=== PATIENT | female | born 1980 | race Caucasian/White ===

== ENCOUNTER → 2016-08-10 | Outpatient (CLI) | payer OTHER | LOC: FIMAGING 09:43 | PROVIDERS: ATTEND Obstetrics & Gynecology | DX: O34.29 Maternal care due to uterine scar from other previous surgery (principal); O09.522 Supervision of elderly multigravida, second trimester; Z3A.19 19 weeks gestation of pregnancy ==

== ENCOUNTER 2016-10-21 12:23 | Observation (INO) | payer OTHER | END 2016-10-21 15:32 | disposition home or self-care (01) | LOC: FLD 12:23 | PROVIDERS: ADMIT Obstetrics & Gynecology; ATTEND Obstetrics & Gynecology | DX: O09.523 Supervision of elderly multigravida, third trimester (principal); Z3A.29 29 weeks gestation of pregnancy | CPT/HCPCS: 59025; G0378 ==

== ENCOUNTER 2016-12-24 04:28 | Inpatient (IN) | payer OTHER ==
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
[2016-12-24] MEDS ORDERED: OLIVE OIL 118 ML BTL MISC PRN (05:07)
[2016-12-24] MEDS ORDERED: EPSOM SALT 454 GM TP PRN (05:07)
[2016-12-24] MEDS ORDERED: TERBUTALINE SULFATE 1 MG/ML VIAL IV PRN (05:07)
[2016-12-24] MEDS ORDERED: LR 1,000 ML IV PRN (05:07)
[2016-12-24] MEDS ORDERED: OXYTOCIN/RINGERS LACTATE 1,000 ML IV PRN (05:07)
[2016-12-24] MEDS ORDERED: VANCOMYCIN HCL/NORMAL SALINE 250 ML IV SCH (05:30)
[2016-12-24 05:35] LABS: % IMMATURE GRANULYOCYTES 1.5 % (0.0-1.1); ABSOLUTE IMMATURE GRANULOCYTES 0.14 10^3/uL (0.00-0.10); ADD DIFF? NO; ADD MORPH? NO; ADD SCAN? NO; ATYPICAL LYMPHOCYTE FLAG 10 (0-99); FRAGMENT RBC FLAG 0 (0-99); HEMATOCRIT 33.6 % (38.0-47.0); HEMOGLOBIN 11.3 g/dL (12.6-16.3); LEFT SHIFT FLG 10 (0-99); LIPEMIA HEMOLYSIS FLAG 80 (0-99); MEAN CELL HEMOGLOBIN CONCENTR. 33.6 g/dL (32.4-36.7); MEAN CELL VOLUME 92.1 fL (81.5-99.8); MEAN PLATELET VOLUME 12.5 fL (8.7-11.7); PLATELET CLUMPS FLAG 0 (0-99); PLATELET COUNT 195 10^3/uL (150-400); RED BLOOD CELL COUNT 3.65 10^6/uL (4.18-5.33); RED CELL DISTRIBUTION WIDTH 13.2 % (11.5-15.2)
[2016-12-24] MEDS ORDERED: MISOPROSTOL 200 MCG TAB ONE (06:30)
[2016-12-24] MEDS ORDERED: AMMONIA AROMATIC 1 EACH AMP IH ONE (06:30)
[2016-12-24] MEDS ORDERED: TERBUTALINE SULFATE 1 MG/ML VIAL ONE (06:30)
[2016-12-24] MEDS ORDERED: OLIVE OIL 118 ML BTL ONE (06:30)
[2016-12-24] MEDS ORDERED: OXYTOCIN 10 UNIT/ML VIAL ONE (06:30)
[2016-12-24] MEDS ORDERED: LIDOCAINE 1% 300 MG/30 ML SDV ONE (06:30)
[2016-12-24] MEDS ORDERED: ceFAZolin 2 GM/DEXTROSE 100 ML IV ONE (10:24)
--- NOTE | 2016-12-24 10:37 | PDHPUP ---
History & Physical Update H&P update statement: This history and physical update is based on an assessment of the patient which was completed after admission or registration (within 24 hours), but prior to the surgery/procedure. H&P update: H&P reviewed & patient examined H&P changes: patient has a history of prior . SROM overnight. no labor after several hours. US done to confirm vertex because no obvious presenting part in the pelvis. head so high I was barely able to reach tip of cervix. discussion about options of attemping vs proceeding with repeat c section. patient would like repeat c section. family status complete but plans to have vasectomy. consent obtained. anesthesia notified.
--- NOTE | 2016-12-24 10:40 | OBPROG ---
Labor Progress Note Assessment/Plan: Assessment: at 38 6/7 weeks history prior c section srom declines trial of labor family status complete Plan: repeat c section plans vasectomy 12/24/16 10:37 Objective: 12/24/16 05:20 Patient ABO/Rh O POSITIVE 12/24/16 05:20 - SVE Station: -3 Membranes: SROM Amniotic Fluid Color: Clear - FHR Assessment Oates FHR (bpm): 120 FHR Pattern Variability: Moderate FHR Category: 1 - AP Antepartum Course: 12/24/16 10:40 had G1 with [facility]. PLTCS for distress. baby was OP. no dilation past 4 cm. Initiated care with [facility] with this . transferred to [facility] at 28 weeks. was considering . negative verify. uncomplicated . hx previous hip surgeries and repair of multiple AVMs in her legs. - Physical Exam General Appearance: WD/WN, alert, no apparent distress Neck: non-tender, full range of motion, supple Respiratory: chest non-tender, lungs clear, normal breath sounds Cardiac/Chest: normal peripheral pulses, regular rate, rhythm Abdomen: normal bowel sounds, non-tender, other (gravid) Extremities: normal range of motion, non-tender, normal inspection, normal capillary refill Skin: normal color, warm/dry Neuro/Psych: no motor/sensory deficits, alert, normal mood/affect, oriented x 3 Oxytocin Orders Assessment - Pre-Induction/Augmentation Assessment Gestational Age: 38 week(s) and 6 day(s) ICD10 Worksheet Patient Problems: Problems Problem Status Onset BV (bacterial vaginosis) Acute
[2016-12-24] MEDS ORDERED: BUPIVACAINE/DEXTROSE 7.5MG/ML 2 ML SPINAL AMP SP ONE (10:54)
--- NOTE | 2016-12-24 11:13 | PREANESOB ---
Obstetric Pre-Anesthesia Info - General Info Proposed Procedure: : 2 Para: 1 - Info Status: Full Term (Prior section with ruptured membranes) - Labor Status Station per last OB SVE: -3 Section History: Repeat Labor Epidural: No Anesthesia Allergies/Adverse Reactions: Allergy/AdvReac Type Severity Reaction Status Date / Time Penicillins Allergy Verified 08/26/10 19:55 Home Medications: Medication Instructions Recorded Docusate Sodium [Colace 100 MG (*)] 100 mg PO BID PRN #60 cap 04/26/14 Visit Medications: Generic Name Dose Route Start Last Admin Trade Name Freq PRN Reason Stop Dose Admin Lactated Ringer's 1,000 mls @ 0 mls/hr 12/24/16 05:07 Lr IV 06/22/17 05:06 PRN PRN SEE PROTOCOL CONDITIONS Protocol Per Protocol Oxytocin/Lactated Ringer's 1,000 mls @ 150 mls/hr 12/24/16 05:07 Pitocin 20 Units/Lr (Premix) IV PRN PRN Post- bleeding Vancomycin/Sodium Chloride 250 mls @ 250 mls/hr 12/24/16 05:30 12/24/16 05:29 Vancomycin 1 Gm (Premix) IV 01/23/17 05:29 250 mls Q12H TRACI Administration Protocol Ibuprofen 600 mg 12/24/16 05:07 Motrin PO 06/22/17 05:06 Q6HRS PRN post , inflammation Magnesium Sulfate 454 gm 12/24/16 05:07 Epsom Salt TP 06/22/17 05:06 Q1H PRN perineal discomfort [place] Oil 118 ml 12/24/16 05:07 Sweet Oil MISC 06/22/17 05:06 ONCE PRN perineal massage Terbutaline Sulfate 0.25 mg 12/24/16 05:07 Brethine IV 06/22/17 05:06 ONCE PRN Tachysystole Discontinued Medications Generic Name Dose Route Start Last Admin Trade Name Freq PRN Reason Stop Dose Admin Ammonia (Aromatic Spirit) Confirm 12/24/16 06:30 Ammonia Aromatic Administered 12/24/16 06:31 Dose 1 each IH .STK-MED ONE Bupivacaine HCl/Dextrose Confirm 12/24/16 10:54 Marcaine Spinal Administered 12/24/16 10:55 Dose 2 ml SP .STK-MED ONE Ephedrine Sulfate Confirm 12/24/16 06:30 Ephedrine Sulfate Administered 12/24/16 06:31 Dose 50 mg .ROUTE .STK-MED ONE Cefazolin Sodium/Dextrose 100 mls @ 200 mls/hr 12/24/16 10:24 Ancef 2 Gm (Premix) IV 12/24/16 10:53 ONCALL ONE Protocol Lidocaine HCl Confirm 12/24/16 06:30 Lidocaine Hcl 1% Administered 12/24/16 06:31 Dose 300 mg .ROUTE .STK-MED ONE Misoprostol Confirm 12/24/16 06:30 Cytotec Administered 12/24/16 06:31 Dose 800 mcg .ROUTE .STK-MED ONE Morphine Sulfate Confirm 12/24/16 10:50 Morphine Administered 12/24/16 10:51 Dose 2 mg .ROUTE .STK-MED ONE [place] Oil Confirm 12/24/16 06:30 Sweet Oil Administered 12/24/16 06:31 Dose 118 ml .ROUTE .STK-MED ONE Oxytocin Confirm 12/24/16 06:30 Pitocin Administered 12/24/16 06:31 Dose 40 unit .ROUTE .STK-MED ONE Terbutaline Sulfate Confirm 12/24/16 06:30 Brethine Administered 12/24/16 06:31 Dose 1 mg .ROUTE .STK-MED ONE - Anesthesia History Anesthesia & Operative History: No Prior Problems (Some N/V) - Focused Exam Height/Weight (Nursing): Height 170.18 cm Weight 80.286 kg Respiratory: chest non-tender Cardiovascular: normal peripheral pulses ASA Status: II Labs: 12/24/16 05:20 Patient ABO/Rh O POSITIVE 12/24/16 05:20 - Plan Anesthetic Plan: Spinal with duramorph Consent Signed and on Chart: Yes
[2016-12-24] MEDS ORDERED: ONDANSETRON 4 MG/2 ML VIAL IVP PRN ×2 (12:01→15:58)
[2016-12-24] MEDS ORDERED: fentaNYL 100 MCG/2 ML INJ IVP PRN (12:01)
[2016-12-24] MEDS ORDERED: OXYTOCIN 100 UNITS/10 ML VIAL ONE (12:36)
--- NOTE | 2016-12-24 12:49 | POSTANESTH ---
Post Anesthetic Evaluation Cardiovascular Status: Normal, Stable Respiratory Status: Normal, Stable Level of Consciousness/Mental Status: Can Participate in Eval Pain Control: Adequate, Prn Tx Ordered Nausea/Vomiting Control: Adequate, Prn Tx Ordered Complications Possibly Related to Anesthesia: None Noted
--- NOTE | 2016-12-24 12:56 | OBDEL ---
Info Type: Repeat Presentation at Delivery: Vertex L&D Analgesia/Anesthesia Type: Spinal GBS+: Yes Antibiotic Used for + GBS: Vancomycin Intrapartum Medications: Discontinued Medications Generic Name Dose Route Start Last Admin Trade Name Taina PRN Reason Stop Dose Admin Vancomycin/Sodium Chloride 250 mls @ 250 mls/hr 12/24/16 05:30 12/24/16 05:29 Vancomycin 1 Gm (Premix) IV 01/23/17 05:29 250 mls Q12H TRACI Administration Protocol Cefazolin Sodium/Dextrose 100 mls @ 200 mls/hr 12/24/16 10:24 12/24/16 11:19 Ancef 2 Gm (Premix) IV 12/24/16 10:53 100 mls ONCALL ONE Administration Protocol - Infant Care Provider [facility] [place] [facility] Lab Technician/FIBERGLASS BOAT MAKER: Penelope Cline Indications for Delivery: SROM Vaginal Delivery - Labor and Delivery Amniotic Fluid Color: Clear Operative Report - Delivery Pre-op Diagnoses: IUP 38 6/7 weeks, hx prior section, SROM, unfavorable cervix, non engaged presenting part, declines trial of labor Post-op Diagnoses: same and preop plus nuchal cord x 3 History of Prior Section: Yes Number of Prior Sections: 1 Nulliparous Prior to Delivery: No Indications for Prior Section: Non-reas. Status Indications for Current Section: Elective/Repeat, Other (Specify) (SROM ) Procedure: Unscheduled, Low Transverse Surgeon: Bernice Betts Digital Forensic Examiner: Luly Blankenship Complications: Nucal Cord (x3) EBL: [address] [place] [address] [place] Delivery Date: 12/24/16 Delivery Time: 11:55 IDA: 01/01/17 Gestational Age: 38 week(s) and 6 day(s) Sex of : Male Score (1 Min): 8 Score (5 Min): 9 ICD10 Worksheet Patient Problems: Problems Problem Status Onset BV (bacterial vaginosis) Acute
[2016-12-24] MEDS ORDERED: POLYETHYLENE GLYCOL 3350 17 GM PKT PO PRN (12:57)
[2016-12-24] MEDS ORDERED: LACTULOSE 20 GM/30 ML UDCUP PO PRN (12:57)
[2016-12-24] MEDS ORDERED: BISACODYL 10 MG SUPP PR PRN (12:57)
[2016-12-24] MEDS ORDERED: SIMETHICONE 80 MG TAB CHEW PO PRN (12:57)
[2016-12-24] MEDS ORDERED: MAGNESIUM HYDROXIDE 30 ML UDCUP PO PRN (12:57)
--- NOTE | 2016-12-24 13:32 | GOP ---
[f rep st] OPERATIVE REPORT DATE OF OPERATION: 12/24/2016 SURGEON: Bernice Betts DO HEAT TREATER APPRENTICE: ADALID Pimentel. ANESTHESIA: Spinal. ANESTHESIOLOGIST: Anthony Yuan MD. PREOPERATIVE DIAGNOSIS: 1. Intrauterine at 38 and 6/7 weeks' gestation. 2. History of previous low transverse section. 3. Spontaneous rupture of membranes. 4. Presenting part not well engaged in the head so patient declined attempted vaginal after ce sarean section. POSTOPERATIVE DIAGNOSIS: 1. Intrauterine at 38 and 6/7 weeks' gestation. 2. History of previous low transverse section. 3. Spontaneous rupture of membranes. 4. Presenting part not well engaged in the head so patient declined attempted vaginal after ce sarean section. 5. Nuchal cord x3. PROCEDURE PERFORMED: FINDINGS: 1. Viable male infant in the cephalic presentation, head not engaged in pelvis. Nuchal cord x3. Ap gars 8 and 9. 2. Intact placenta with 3-vessel cord. 3. Normal ovaries, uterus and tubes. ESTIMATED BLOOD LOSS: 800 cc. INDICATIONS: Patient is a 36-year-old, 2, para 1-0-0-1, who has a history of a previous low transverse section for non-reassuring status. The patient initiated care wit [facility] and transferred to [facility] at 28 weeks gestation. She is dated by a 1st trimester ultrasound consistent with last her menstrual period. The patient has gone back and forth between attempting a vaginal after section versus having a scheduled repeat low transverse section. The patient's water broke overnight and it has been several hours s mehreen her water broke and she has not progressed into labor. When I did check her cervix, I was not a ble to feel a presenting part in the pelvis and needed to do an ultrasound to confirm that it was act ually head presenting. The head was presenting, but as stated, the head is not well engaged in the p mary. I was barely able to reach the cervix. We had a long discussion about waiting for her to pro angeline in labor and attempting a vaginal after section versus proceeding with a repeat low transverse section. Patient elected to proceed with a repeat low transverse se ction at this time. The patient's family status is complete, but her will have a vasectomy s o she has declined a tubal ligation. Risks and benefits were reviewed with the patient and patient w as properly consented. DESCRIPTION OF PROCEDURE: Patient was taken to the operating room with intravenous fluids in place. She was then seated on the operating room table where a spinal anesthesia was obtained. She was the n repositioned into the dorsal supine position with a leftward tilt. A Nina catheter was placed. V enodynes were placed on her lower extremities. She was then prepped and draped in the normal sterile fashion. Anesthesia was assessed and found to be adequate. A Pfannenstiel skin incision was then m john 2 fingerbreadths above the pubic symphysis. The incision was then carried through to the underly ing layer of fascia with the Bovie. The fascia was then nicked in the midline, and fascial incision was extended laterally. The superior aspect of the fascial incision was then grasped with a Susana. It was tented up and the underlying rectus muscle dissected off bluntly with the Bovie. Attention w as then turned to the inferior aspect of the fascial incision, which in a similar fashion was grasped with a Susana, tented up, and the underlying rectus muscle dissected off bluntly with the Bovie. Th e rectus muscle was then in the midline. The peritoneum was identified, tented up, and ent ered sharply with the Metzenbaum scissors. The incision was extended superiorly and inferiorly with excellent visualization of the bladder. The bladder blade was then inserted. The vesicouterine rey toneum was identified, tented up, and entered sharply with the Metzenbaum scissors. The incision was extended laterally and the bladder flap was created digitally. A very prominent venous sinus was no krystle on the right side of the lower uterus. The uterus was then incised in a low-transverse fashion, taking care to try to avoid that venous sinus. The incision was then extended laterally. Membranes were artificially ruptured and clear fluid was noted. The 's head was noted to not be at all e ngaged within the pelvis. It was delivered through the incision and a nuchal cord x3 was noted and e asily reduced. The remainder of the infant was then delivered without difficulty. Delayed cord clam ping for 1 minute was performed when baby was dried and stimulated. The cord was then clamped x2 and cut. Cord blood was obtained and the infant was handed off to awaiting nurse practitioner. Intact placenta with 3-vessel cord delivered without difficulty. The uterus was then exteriorized and cleared of all clots and debris. The bladder blade was then reinserted. The 0 Vicryl stitch was used to close the hysterotomy in a running locked fashion. A 2nd 0 Vicryl stitch was used to imbric ate the uterine incision. The prominent vessels in the right lower portion of the uterus were noted to be bleeding, so additional 0 Vicryl stitch was used to achieve hemostasis. Ovaries, uterus, and t ubes were unremarkable. The uterus was then returned to the patient's abdomen. The gutters were samira ared of all clots and debris. Hysterotomy remained hemostatic. There were several areas of small am ount of oozing over the prominent vessels, so Aaron powder was applied. No pooling of blood was not ed. The peritoneum was reapproximated with 3-0 Vicryl in a running fashion. Rectus muscles reapprox imated with 2-0 Vicryl in a running fashion. Fascia was closed with 0 Vicryl in a running fashion. Juan C's tissue was reapproximated with 3-0 Vicryl in a running fashion. The skin was then closed wi th leeann. Sponge, lap, and needle count were correct x2. Patient was transported to recovery room in stable condition. /[id number]/MODL
[2016-12-24] MEDS: KETOROLAC 30 MG/1 ML SDV IVP SCH ×2 (14:30→20:35)
[2016-12-24] MEDS ORDERED: PROMETHAZINE HCL 25 MG in LR 1,000 ML IV PRN (19:09)
[2016-12-24] MEDS: SENNOSIDES/DOCUSATE SODIUM TAB PO SCH (20:35)
[2016-12-25] MEDS: KETOROLAC 30 MG/1 ML SDV IVP SCH ×2 (02:32→08:54)
[2016-12-25] MEDS: SENNOSIDES/DOCUSATE SODIUM TAB PO SCH ×3 (04:27→21:42)
--- NOTE | 2016-12-25 08:45 | OBPP ---
Progress Note Assessment/Plan: Assessment: pain well managed vs wnl anem,ic ff@u scant rubra lochia passing gas schmitt remains in place bandage remains intact no bleeding noted nreast feeding well Plan:expectant management po day 1 12/25/16 08:44 Subjective/ Course: 12/25/16 08:42 Doing well denies difficulties. well. Pain well managed. Objective: 12/25/16 06:00 Patient ABO/Rh O POSITIVE 12/24/16 05:20 Temp Pulse Resp BP Pulse Ox 36.4 C 76 18 88/59 L 93 12/25/16 05:59 12/25/16 05:59 12/25/16 05:59 12/25/16 05:59 12/25/16 05:59 Uterine Position/Fundal Height: At Umbilicus Uterine Tone: Firm Physical Exam - Physical Exam General Appearance: WD/WN, alert, no apparent distress Neck: non-tender, full range of motion Respiratory: chest non-tender, lungs clear, normal breath sounds Cardiac/Chest: regular rate, rhythm Abdomen: normal bowel sounds, dressing (intact dry) Extremities: normal range of motion, Kelly's sign (negative bilaterally) DTR- Lower Extremities: Knee (R): 1+, Knee (L): 1+ (no clonus) Back: Normal inspection Skin: normal color, warm/dry Neuro/Psych: no motor/sensory deficits, alert, normal mood/affect, oriented x 3
[2016-12-25] MEDS: IRON POLYSAC/IRON HEME 28 MG TAB PO SCH ×3 (09:55→21:42)
[2016-12-25] MEDS: IBUPROFEN 600 MG TAB PO PRN ×2 (15:37→21:42)
[2016-12-25] MEDS: HYDROCODONE/APAP 5/325 TAB PO PRN ×2 (16:02→20:16)
[2016-12-26] MEDS: HYDROCODONE/APAP 5/325 TAB PO PRN ×5 (02:03→20:26)
[2016-12-26] MEDS: IBUPROFEN 600 MG TAB PO PRN ×4 (04:51→23:55)
--- NOTE | 2016-12-26 08:22 | OBPP ---
Progress Note Assessment/Plan: Assessment: pain well managed vs wnl anemic ff@u scant rubra lochia passing gas voiding without difficulty incision well approximated no ss of infection breast feeding well nipples intact Plan:expectant management po day 2 12/25/16 08:44 12/26/16 08:19 Subjective/ Course: doing well. no ss of infection, pain well managed, ambulating without difficulty. well. 12/25/16 08:42 Doing well denies difficulties. well. Pain well managed. 12/26/16 08:20 Objective: 12/25/16 06:00 Patient ABO/Rh O POSITIVE 12/24/16 05:20 Temp Pulse Resp BP Pulse Ox 36.6 C 78 18 97/67 L 95 12/25/16 20:00 12/25/16 20:00 12/25/16 20:00 12/25/16 20:00 12/25/16 20:00 Uterine Position/Fundal Height: At Umbilicus Uterine Tone: Firm Physical Exam - Physical Exam General Appearance: WD/WN, alert, no apparent distress Respiratory: chest non-tender, lungs clear, normal breath sounds Cardiac/Chest: regular rate, rhythm Abdomen: normal bowel sounds, incision (clean dry approximated) Extremities: normal range of motion, Kelly's sign (negative bilaterally) DTR- Lower Extremities: Knee (R): 1+, Knee (L): 1+ (no clonus) Skin: normal color, warm/dry Neuro/Psych: no motor/sensory deficits, alert, normal mood/affect, oriented x 3
[2016-12-26] MEDS: IRON POLYSAC/IRON HEME 28 MG TAB PO SCH ×2 (10:18→20:24)
[2016-12-26] MEDS: SENNOSIDES/DOCUSATE SODIUM TAB PO SCH ×2 (10:18→20:24)
[2016-12-27] MEDS: HYDROCODONE/APAP 5/325 TAB PO PRN ×2 (03:18→11:24)
[2016-12-27] MEDS: IBUPROFEN 600 MG TAB PO PRN ×2 (05:57→12:39)
[2016-12-27] MEDS: IRON POLYSAC/IRON HEME 28 MG TAB PO SCH (08:27)
[2016-12-27] MEDS: SENNOSIDES/DOCUSATE SODIUM TAB PO SCH (08:27)
[2016-12-27 08:58] VITALS: BP 118/75; PULSE 65; RESP 16; TEMP 97.5; O2SAT 94
--- NOTE | 2016-12-27 10:10 | OBPP ---
Progress Note Assessment/Plan: Assessment: pod# 3 s/p RLTCS at 38 6/7 weeks history prior c section srom declines trial of labor family status complete Plan: iron routine post discharge instructions 12/27/16 10:07 Subjective/ Course: doing well. no ss of infection, pain well managed, ambulating without difficulty. well. 12/25/16 08:42 Doing well denies difficulties. well. Pain well managed. 12/26/16 08:20 12/27/16 10:08 patient is doing well. pain is well controlled. normal lochia. denies headache and changes in vision. ambulating. passing gas. voiding without difficulty. ready to go home. breast feeding is going well Objective: 12/25/16 06:00 Patient ABO/Rh O POSITIVE 12/24/16 05:20 Temp Pulse Resp BP Pulse Ox 36.4 C 65 16 118/75 94 12/27/16 08:00 12/27/16 08:00 12/27/16 08:00 12/27/16 08:00 12/27/16 08:00 Physical Exam - Physical Exam Neck: non-tender, full range of motion, supple Respiratory: chest non-tender, lungs clear, normal breath sounds Cardiac/Chest: normal peripheral pulses, regular rate, rhythm Abdomen: normal bowel sounds, non-tender Extremities: normal range of motion, non-tender, normal inspection, normal capillary refill Skin: normal color, warm/dry Neuro/Psych: no motor/sensory deficits, alert, normal mood/affect, oriented x 3
--- NOTE | 2016-12-27 10:11 | OBGCSDC ---
General Delivery Information - General Info : 2 Para: 2 Abortions: 0 Type: Repeat L&D Analgesia/Anesthesia Type: Spinal Admission Date: 12/24/16 Labs: Patient ABO/Rh O POSITIVE 12/24/16 05:20 Hct 25.6 % (38.0-47.0) L D 12/25/16 06:00 - Hospital Course Antepartum: 12/24/16 10:40 had G1 with [facility]. PLTCS for distress. baby was OP. no dilation past 4 cm. Initiated care with [facility] with this . transferred to [facility] at 28 weeks. was considering . negative verify. uncomplicated . hx previous hip surgeries and repair of multiple AVMs in her legs. : doing well. no ss of infection, pain well managed, ambulating without difficulty. well. 12/25/16 08:42 Doing well denies difficulties. well. Pain well managed. 12/26/16 08:20 12/27/16 10:08 patient is doing well. pain is well controlled. normal lochia. denies headache and changes in vision. ambulating. passing gas. voiding without difficulty. ready to go home. breast feeding is going well Vaginal - Diagnosis Amniotic Fluid Color: Clear - Delivery Providers Surgeon: Bernice Betts Game Programmer: Luly Blankenship - Delivery Number of Prior Sections: 1 Indications for Current Section: Elective/Repeat, Other (Specify) (SROM ) Surgical Procedures: Unscheduled, Low Transverse Intra-op Complications: Nucal Cord (x3) EBL: [address] [place] [address] Delivery Date: 12/24/16 Delivery Time: 11:50 IDA: 01/01/17 Gestational Age: 39 week(s) and 2 day(s) Sex of : Male [place] Weight (gm): 3276 kg Score (1 Min): 8 Score (5 Min): 9 Discharge Information - Discharge Information Prescriptions: Hydrocodone/APAP 5/325 [[place] 5/325 (*)] 1 - 2 tab PO Q4HRS PRN #30 tab PRN Reason: Pain, Moderate Ibuprofen [Motrin (*)] 600 mg PO Q6HRS PRN #30 tab PRN Reason: post , inflammation Condition: Good Instruction/Follow Up: Two Weeks, Four Weeks, Six Weeks
== END 2016-12-27 13:30 | disposition home or self-care (01) | DRG 766 ==
LOC: FLD 04:28 → FOB 15:36
PROVIDERS: ADMIT Obstetrics & Gynecology; ATTEND Obstetrics & Gynecology
PROC: 10D00Z1 Extraction of Products of Conception, Low, Open Approach (ICD-10-PCS; principal; 2016-12-24)
DX: O34.219 Maternal care for unspecified type scar from previous cesarean delivery (principal); Z37.0 Single live birth; Z3A.39 39 weeks gestation of pregnancy; O69.82X0 Labor and delivery complicated by other cord entanglement, without compression, not applicable or unspecified
CPT/HCPCS: J1885; J2405; J2550; J2590; J3105; J3370